=== PATIENT | male | born 1990 | race American Indian/Alaskan Native ===

== ENCOUNTER 2020-02-29 16:00 | Emergency (ER) | payer SELFPAY ==
--- NOTE | 2020-02-29 16:35 | XRay Report ---
RIGHT WRIST 2 VIEWS INDICATION: FRACTURE. COMPARISON: No relevant prior imaging study available. FINDINGS: There is a minimally displaced intra-articular fracture of the distal radius primarily involving the radial styloid. There is also a minimally displaced ulnar styloid fracture. No carpal fracture is see n. There is diffuse soft tissue swelling. IMPRESSION: 1. Distal radial and ulnar fractures, as above. Signer Name: Steven Ni MD Signed: 02/29/2020 4:30 PM Workstation Name: [id number]
[2020-02-29] MEDS ORDERED: HYDROcodone/ACETAMINOPHEN 7.5-325MG TAB PO ONE (16:48)
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
[2020-02-29 18:03] VITALS: BP 119/70
== END 2020-02-29 18:03 | disposition home or self-care (01) ==
LOC: ED 16:00
DX: S52.501A Unspecified fracture of the lower end of right radius, initial encounter for closed fracture (principal); S52.601A Unspecified fracture of lower end of right ulna, initial encounter for closed fracture; F17.200 Nicotine dependence, unspecified, uncomplicated; X58.XXXA Exposure to other specified factors, initial encounter; Y93.89 Activity, other specified; Y92.89 Other specified places as the place of occurrence of the external cause; Y99.8 Other external cause status

== ENCOUNTER 2020-04-02 17:41 | Emergency (ER) | payer SELFPAY ==
[2020-04-02 17:49] VITALS: BP 130/85
[2020-04-02] MEDS ORDERED: traMADol 50 MG TAB PO ONE (18:07)
--- NOTE | 2020-04-02 18:07 | Emergency Department Report ---
ED Recheck HPI - General Chief Complaint: Extremity Problem,Nontraumatic Stated Complaint: FOLLOW UP Time Seen by Provider: 04/02/20 18:06 Source: patient Mode of arrival: Ambulatory Limitations: No Limitations - History of Present Illness Initial Comments: 29 YO COMES TO ER P REMOVING HIS VOLAR SPLINT AND EXPERIENCING PAIN. SEEN HERE LAST WEEK AND DX WITH FRACTURES. NEUROVASC INTACT ON ARRIVAL R HAND SWELLING NO NEW TRAUMA EDUCATED ON FX CARE - Related Data Previous Rx's Medication Instructions Recorded Last Taken Type HYDROcodone/APAP 5-325 [[place] 1 each PO Q6HR PRN #12 tablet 02/29/20 Unknown Rx 5/325] Allergies Allergy/AdvReac Type Severity Reaction Status Date / Time No Known Allergies Allergy Unverified 02/29/20 16:02 ED Review of Systems ROS: Stated complaint: FOLLOW UP Other details as noted in HPI Comment: All other systems reviewed and negative ED Past Medical Hx - Past Medical History Previous Medical History?: No - Surgical History Past Surgical History?: No - Family History Family history: no significant - Social History Smoking Status: Current Every Day Smoker Substance Use Type: Alcohol, Marijuana - Medications Home Medications: Home Medications Medication Instructions Recorded Confirmed Last Taken Type HYDROcodone/APAP 5-325 [[place] 1 each PO Q6HR PRN #12 tablet 02/29/20 Unknown Rx 5/325] ED Physical Exam - General Limitations: No Limitations General appearance: alert, in no apparent distress - Head Head exam: Present: atraumatic, normocephalic - Eye Eye exam: Present: normal appearance - ENT ENT exam: Present: mucous membranes moist - Neck Neck exam: Present: normal inspection - Respiratory Respiratory exam: Present: normal lung sounds bilaterally. Absent: respiratory distress - Cardiovascular Cardiovascular Exam: Present: regular rate, normal rhythm. Absent: systolic murmur, diastolic murmur, rubs, gallop - GI/Abdominal GI/Abdominal exam: Present: soft, normal bowel sounds - Rectal Rectal exam: Present: deferred - Extremities Exam Extremities exam: Present: normal inspection - Expanded Upper Extremity Exam Right Shoulder Exam: Present: normal inspection Upper Arm exam: Present: normal inspection Elbow exam: Present: normal inspection Forearm Wrist exam: Present: tenderness, swelling Hand Wrist exam: Present: swelling - Back Exam Back exam: Present: normal inspection - Neurological Exam Neurological exam: Present: alert, oriented X3 - Psychiatric Psychiatric exam: Present: normal affect, normal mood - Skin Skin exam: Present: warm, dry, intact, normal color. Absent: rash ED Course Vital Signs 04/02/20 17:47 Temperature 98.2 F Pulse Rate 47 L Respiratory 18 Rate Blood Pressure 130/85 O2 Sat by Pulse 98 Oximetry ED Recheck MDM - Core Measures Measure Exclusions: not indicated - Medical Decision Making xray noted fx not healed volar replaced pt educated on the need to follow up with ortho. He verbalizes understanding neurovasc intact dc home with follow up with Dr Chaudhari Vital Signs 04/02/20 17:47 Temperature 98.2 F Pulse Rate 47 L Respiratory 18 Rate Blood Pressure 130/85 O2 Sat by Pulse 98 Oximetry Critical care attestation.: If time is entered above; I have spent that time in minutes in the direct care of this critically ill patient, excluding procedure time. ED Disposition Clinical Impression: Radius and ulna distal fracture Disposition: DC-01 TO HOME OR SELFCARE Is pt being admited?: No Does the pt Need Aspirin: No Condition: Stable Additional Instructions: KEEP SPLINT ON ICE REST ELEVATE MOTRIN OR TYLENOL FOR PAIN FOLLOW UP WITH DR CHAUDHARI REFERRAL BELOW Referrals: ANTHONY CHAUDHARI MD [Staff Physician] - 3-5 Days Time of Disposition: 18:07
--- NOTE | 2020-04-02 18:12 | XRay Report ---
XR wrist 2V RT INDICATION / CLINICAL INFORMATION: Right wrist pain. COMPARISON: Right wrist radiographs on 02/29/2020. FINDINGS: BONES/JOINT(S): There has been some early healing of the right distal radial and ulnar fractures sinc e the prior study without concerning change in alignment or other adverse change from the prior exam. SOFT TISSUES: No significant abnormality. ADDITIONAL FINDINGS: None. Signer Name: Leonardo Kang MD Signed: 04/02/2020 6:08 PM Workstation Name: [id number]
== END 2020-04-02 19:32 | disposition home or self-care (01) ==
LOC: ED 17:41
DX: S52.591A Other fractures of lower end of right radius, initial encounter for closed fracture (principal); F17.200 Nicotine dependence, unspecified, uncomplicated; F12.10 Cannabis abuse, uncomplicated; Z79.899 Other long term (current) drug therapy; X58.XXXA Exposure to other specified factors, initial encounter; Y93.89 Activity, other specified; Y92.89 Other specified places as the place of occurrence of the external cause; Y99.8 Other external cause status
CPT/HCPCS: 99283

== ENCOUNTER 2020-04-04 16:44 | Emergency (ER) | payer SELFPAY ==
--- NOTE | 2020-04-04 16:59 | Emergency Department Report ---
Stated Complaint: SPLINT TIGHT Time Seen by Provider: 04/04/20 16:58 - HPI History of Present Illness: Mr. Nunn is a 29-year-old that comes to the ER for the third time in the last while with his distal radius and ulna fracture. After his first visit he took his splint off and had increasing pain so he returned to the ER for second visit. Today he returns in because he says his fourth and fifth fingers are pinched in his splint. The splint is not circumferential. Of loosen the Dwight bandage and the patient reports feeling better. Patient prior to me even removing the dwight had full range of motion of his distal fingers rapid cap refill in the digits were warm. - Exam Vital Signs: Vital signs Per RN Physical Exam: Rapid cap refill warm distal digits Full range of motion digits MSE screening note: Focused history and physical exam performed. Due to findings the following was ordered: Dwight was loosened on splint. Patient being discharged home he already has follow-up with Dr. Chaudhari. Patient discussed with doctor:: BUCK RIVERA ED Disposition for MSE Clinical Impression: Radius and ulna distal fracture Disposition: DC- TO HOME OR SELFCARE Is pt being admited?: No Does the pt Need Aspirin: No Condition: Stable Time of Disposition: 16:59
[2020-04-04 17:04] VITALS: BP 149/67
== END 2020-04-04 19:11 | disposition home or self-care (01) ==
LOC: ED 16:44
DX: S52.90XD Unspecified fracture of unspecified forearm, subsequent encounter for closed fracture with routine healing (principal); X58.XXXD Exposure to other specified factors, subsequent encounter
CPT/HCPCS: 99282

== ENCOUNTER 2022-02-23 12:41 | Emergency (ER) | payer SELFPAY ==
[2022-02-23] MEDS ORDERED: LET TOPICAL (LIDOCAINE/EPINEPHRINE/TETRACAINE) 3 ML TP ONE (18:19)
[2022-02-23] MEDS: LIDOCAINE (1%) 10 MG/1 ML VIAL 20 ML MDV INFILTRATI ONE (19:01)
--- NOTE | 2022-02-23 19:22 | Emergency Department Report ---
- General Chief Complaint: Laceration/Recheck/Suture Stated Complaint: LAC IN TOP OF HEAD Time Seen by Provider: 02/23/22 18:06 Source: patient Mode of arrival: Ambulatory Limitations: No Limitations - History of Present Illness Initial Comments: 31-year-old black male with no past medical history presents to the emergency department for evaluation of scalp laceration. He states that he bumped his head on a metal bar earlier today. Bleeding is controlled. He denies loss of c onsciousness, dizziness, nausea, vomiting, or headache. He states that his Tdap is up-to-date. -: Sudden Location: scalp Place: home Patient Tetanus UTD: Yes Context: accidental Associated Symptoms: none - Related Data Previous Rx's Medication Instructions Recorded Last Taken Type HYDROcodone/APAP 5-325 [[place] 1 each PO Q6HR PRN #12 tablet 02/29/20 Unknown Rx 5/325] Allergies Allergy/AdvReac Type Severity Reaction Status Date / Time No Known Allergies Allergy Unverified 02/29/20 16:02 ED Review of Systems ROS: Stated complaint: LAC IN TOP OF HEAD Other details as noted in HPI Constitutional: denies: chills, fever Eyes: denies: eye pain, vision change ENT: denies: ear pain, hearing loss, epistaxis Respiratory: denies: shortness of breath Cardiovascular: denies: chest pain, palpitations Gastrointestinal: denies: nausea, vomiting Skin: other (Scalp laceration) Neurological: denies: headache, weakness, numbness, paresthesias, confusion, abnormal gait, vertigo Hematological/Lymphatic: denies: easy bleeding, easy bruising ED Past Medical Hx - Social History Smoking Status: Current Every Day Smoker Substance Use Type: None - Medications Home Medications: Home Medications Medication Instructions Recorded Confirmed Last Taken Type HYDROcodone/APAP 5-325 [[place] 1 each PO Q6HR PRN #12 tablet 02/29/20 Unknown Rx 5/325] ED Physical Exam - General Limitations: No Limitations General appearance: in no apparent distress - Head Head exam: Present: normocephalic. Absent: atraumatic - Expanded Head Exam Expanded Head exam: Present: laceration 1 - 8 cm scalp laceration no bleeding noted. - Eye Eye exam: Present: normal appearance, PERRL, EOMI. Absent: conjunctival injection, periorbital swelling, periorbital tenderness Pupils: Present: normal accommodation - Neck Neck exam: Present: normal inspection - Respiratory Respiratory exam: Absent: respiratory distress - Cardiovascular Cardiovascular Exam: Present: regular rate - GI/Abdominal GI/Abdominal exam: Absent: distended - Extremities Exam Extremities exam: Present: normal inspection - Back Exam Back exam: Present: normal inspection - Neurological Exam Neurological exam: Present: alert, oriented X3, CN II-XII intact, normal gait, reflexes normal. Absent: motor sensory deficit - Expanded Neurological Exam Expanded Patient oriented to: Present: person, place, time Speech: Present: fluid speech Cranial nerves: EOM's Intact: Normal, Gag Reflex: Normal, Tongue Deviation: Normal, Nystagmus: Normal, Facial Sensation: Normal Ataxia: Absent: yes Motor strength exam: RUE: 5, LUE: 5, RLE: 5, LLE: 5 Best Eye Response (Disha): (4) open spontaneously Best Motor Response ([place]): (6) obeys commands Best Verbal Response ([place]): (5) oriented Disha Total: 15 - Psychiatric Psychiatric exam: Present: normal affect, normal mood - Skin Skin exam: Present: warm, dry, normal color ED Course Vital Signs 02/23/22 13:59 Temperature 98.5 F Pulse Rate 75 Respiratory 18 Rate Blood Pressure 117/43 [Right] O2 Sat by Pulse 99 Oximetry - Laceration /Wound Repair Head Wound Location: head (Frontal scalp) Wound Length (cm): 8 Wound's Depth, Shape: superficial Wound Explored: clean Irrigated w/ Saline (ccs): 40 Betadine Prep?: Yes Anesthesia: 1% Lidocaine Volume Anesthetic (ccs): 6 Number of Sutures: 9 (Avtar) Layer Closure?: No Sterile Dressing Applied?: No Progress: Wound cleaned toward thoroughly and irrigated, then anesthetized with 1% lidocaine without. After anesthetized, 9 avtar placed. Wound well approximated. No bleeding or drainage noted. Patient tolerated well. ED Medical Decision Making - Medical Decision Making 31-year-old black male with no past medical history presents to the emergency department for evaluation of scalp laceration. He states that he bumped his head on a metal bar earlier today. Bleeding is controlled. He denies loss of consciousness, dizziness, nausea, vomiting, or headache. He states that his Tdap is up-to-date. Patient without any neurologic deficits noted, no past medical history, and young age therefore low suspicion for cerebral hemorrhage. Scalp laceration cleaned and 9 avtar placed. Patient tolerated well. Patient's Tdap is up-to-date. He was advised to monitor for signs of infection and return to the emergency department if any noted. He was advised to return to the emergency department or follow-up with PCP in 10 to 14 days for staple removal. He jamel balized understanding of and agreement with plan of care. Critical care attestation.: If time is entered above; I have spent that time in minutes in the direct care of this critically ill patient, excluding procedure time. ED Disposition Clinical Impression: Scalp laceration Qualifiers: Encounter type: initial encounter Qualified Code(s): S01.01XA - Laceration without foreign body of scalp, initial encounter Head injury Qualifiers: Encounter type: initial encounter Qualified Code(s): S09.90XA - Unspecified injury of head, initial encounter Disposition: HOME / SELF CARE / HOMELESS Is pt being admited?: No Does the pt Need Aspirin: No Condition: Stable Instructions: Sutured Wound Care, [id number], Laceration Care, Adult, [id number], Head Injury, Adult, [id number] Additional Instructions: Monitor for signs of infection. Follow-up to the emergency department immediately if you note any signs of infection or any changes in mentation. Follow-up with PCP or in ED in 10 to 14 days to have avtar removed. Referrals: ULISSES GONZALES MD [Referring] - 3-5 Days Time of Disposition: 19:30
[2022-02-23 20:02] VITALS: BP 142/71
== END 2022-02-23 19:50 | disposition home or self-care (01) ==
LOC: ED 12:41
DX: S01.01XA Laceration without foreign body of scalp, initial encounter (principal); F17.200 Nicotine dependence, unspecified, uncomplicated; Z79.899 Other long term (current) drug therapy; W22.8XXA Striking against or struck by other objects, initial encounter; Y93.89 Activity, other specified; Y92.89 Other specified places as the place of occurrence of the external cause; Y99.8 Other external cause status
CPT/HCPCS: 12004; 99282; J3490

== ENCOUNTER 2022-03-09 16:59 | Emergency (ER) | payer SELFPAY ==
--- NOTE | 2022-03-09 19:02 | Emergency Department Report ---
Suture/Staple Removal - [facility] Chief Complaint: Laceration/Recheck/Suture Stated Complaint: SUTURE REMOVAL When Sutures or [place] Placed: 8-10 Days Ago Wound Location: Back of head ED Review of Systems ROS: Stated complaint: SUTURE REMOVAL Other details as noted in HPI Constitutional: denies: chills, fever Eyes: denies: eye pain, eye discharge, vision change ENT: denies: ear pain, throat pain Respiratory: denies: cough, shortness of breath, wheezing Cardiovascular: denies: chest pain, palpitations Endocrine: no symptoms reported Gastrointestinal: denies: abdominal pain, nausea, diarrhea Genitourinary: denies: urgency, dysuria Musculoskeletal: denies: back pain, joint swelling, arthralgia Skin: other (9 staple intact to the back of the head). denies: rash, lesions Neurological: denies: headache, weakness, paresthesias Psychiatric: denies: anxiety, depression Hematological/Lymphatic: denies: easy bleeding, easy bruising ED Past Medical Hx - Social History Smoking Status: Current Every Day Smoker Substance Use Type: None - Medications Home Medications: Home Medications Medication Instructions Recorded Confirmed Last Taken Type HYDROcodone/APAP 5-325 [[place] 1 each PO Q6HR PRN #12 tablet 02/29/20 Unknown Rx 5/325] Suture Removal Exam - Exam General: Vital signs noted. No distress. Alert and acting appropriately. Wound: No Pathologic Erythema, No Tenderness, No Drainage, No Pus, No Wound Dehiscence Other Systems: All other systems reviewed and are unremarkable. ED Course Vital Signs 03/09/22 17:49 Temperature 98.1 F Pulse Rate 65 Respiratory 18 Rate Blood Pressure 134/72 [Right] O2 Sat by Pulse 99 Oximetry ED Recheck MDM - Differential Diagnosis Wound Recheck, Cellultitis Recheck, Suture/Staple Removal - Medical Decision Making 31-year-old male presents to the ED with karla intact to the back of the head. 9 Staple removal . Patient tolerated procedure well. No drainage noted. no erythema noted from site. Patient is alert and oriented. No acute distress noted .No ill appearance noted. Patient is ambulatory. Physical examination is unremarkable. Rechecked the patient is resting quietly quietly and comfortable and feeling better. I discussed the results of diagnostic study, my clinical impression and the plan for further treatment with the patient. Patient agrees with plan and discharge at this present time. All question addressed. I have given the patient instruction regarding a diagnosis ,expectation ,follow- up and return precaution. I explained to the patient that emergent condition may arise and to return to the ED for new worsen and any new persisting condition. I have explained the importance of following up with the primary care physician or referral physician listed below has instructed. The patient verbalized understanding of discharge instruction. Critical care attestation.: If time is entered above; I have spent that time in minutes in the direct care of this critically ill patient, excluding procedure time. ED Disposition Clinical Impression: Encounter for staple removal Disposition: 01 HOME / SELF CARE / HOMELESS Is pt being admited?: No Does the pt Need Aspirin: No Condition: Stable Instructions: Wound Closure Removal, Care After Additional Instructions: Take medication as prescribed Return to ED for any worsening symptom Referrals: [facility] [Provider Group] - 3-5 Days Forms: Work/School Release Form(ED)
[2022-03-09 19:21] VITALS: BP 121/81
== END 2022-03-09 19:20 | disposition home or self-care (01) ==
LOC: ED 16:59
DX: S01.91XD Laceration without foreign body of unspecified part of head, subsequent encounter (principal); F17.200 Nicotine dependence, unspecified, uncomplicated; X58.XXXD Exposure to other specified factors, subsequent encounter
CPT/HCPCS: 99282